=== PATIENT | female | born 1980 | race Caucasian/White ===

== ENCOUNTER 2017-09-26 13:49 | Emergency (ER) | payer OTHER ==
[2017-09-26 14:02] VITALS: BP 128/85; TEMP 98.1; O2SAT 99
--- NOTE | 2017-09-26 14:57 | EDPHY ---
H & P Stated Complaint: Head injury, n/v, vision changes, neck pain HPI/ROS: I did not see this patient. Please see the note by Kristen ALEX. Source: Patient - Personal History LMP (Females 10-55): 22-28 Days Ago Current Tetanus/Diphtheria Vaccine: Unsure Current Tetanus Diphtheria and Acellular Pertussis (TDAP): Unsure Tetanus Vaccine Date: 3 years ago - Medical/Surgical History Hx Asthma: No Hx Chronic Respiratory Disease: No Hx Diabetes: No Hx Cardiac Disease: No Hx Renal Disease: No Hx Cirrhosis: No Hx Alcoholism: No Hx HIV/AIDS: No Hx Splenectomy or Spleen Trauma: No Other PMH: HYPOTHYROID, - Social History Smoking Status: Never smoked Constitutional: Initial Vital Signs Temperature (C) 36.7 C 09/26/17 13:58 Heart Rate 85 09/26/17 13:58 Respiratory Rate 18 09/26/17 13:58 Blood Pressure 128/85 H 09/26/17 13:58 O2 Sat (%) 99 09/26/17 13:58 O2 Delivery Mode Room Air Allergies/Adverse Reactions: bee venom protein (honey bee) Allergy (Verified 09/26/17 14:02) Home Medications: Medication Instructions Recorded EPINEPHrine [Epipen] 0.3 mg IM ONCE #2 syr 06/09/15 Levothyroxine 09/26/17 Medical Decision Making - Data Points Medications Given: Discontinued Medications Ibuprofen (Motrin) 600 mg PO EDNOW ONE Stop: 09/26/17 16:40 Last Admin: 09/26/17 16:43 Dose: 600 mg Ondansetron HCl (Zofran Odt) 4 mg PO EDNOW ONE Stop: 09/26/17 16:15 Last Admin: 09/26/17 16:22 Dose: 4 mg Departure - Departure Disposition: Home, Routine, Self-Care Clinical Impression: Head injury Qualifiers: Encounter type: initial encounter Qualified Code(s): S09.90XA - Unspecified injury of head, initial encounter Cervical strain Qualifiers: Encounter type: initial encounter Qualified Code(s): S16.1XXA - Strain of muscle, fascia and tendon at neck level, initial encounter Condition: Good Instructions: Cervical Strain (ED), Concussion (ED), Head Injury (ED) Additional Instructions: Return to the emergency department if you develop worsening headache, vomiting, altered mental status, or if you feel worse in any way. Ibuprofen 600mg every 8 hours for pain as directed. Referrals: Karen Brannon MD [Medical Doctor] - 5-7 days, call for appt. (primary care provider bone char kiln tender)
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
[2017-09-26] MEDS ORDERED: ONDANSETRON DISINTEGRATING 4 MG TAB PO ONE (16:14)
[2017-09-26] MEDS ORDERED: IBUPROFEN 600 MG TAB PO ONE (16:39)
[2017-09-26 16:50] VITALS: PULSE 80; RESP 16
== END 2017-09-26 16:50 | disposition home or self-care (01) ==
DX: S09.90XA Unspecified injury of head, initial encounter (principal); S16.1XXA Strain of muscle, fascia and tendon at neck level, initial encounter; W00.0XXA Fall on same level due to ice and snow, initial encounter; Y99.8 Other external cause status; Y93.89 Activity, other specified